=== PATIENT | male | born 1985 | race Caucasian/White ===

== ENCOUNTER 2016-06-20 10:16 | Emergency (ER) | payer OTHER ==
--- NOTE | 2016-06-20 10:21 | EDPHY ---
Medical Decision Making ED Course/Re-evaluation: CHIEF COMPLAINT: Dog bites. 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 The pain is 8/10 and described as a burning sensation. He denies other complaints at this time. He is unsure when his last tetanus was. REVIEW OF SYSTEMS: A 10 point review of systems was performed and is negative with the exception of the elements mentioned in the history of present illness. PHYSICAL EXAM: HR, BP, O2 Sat, RR. Temp noted General Appearance: Alert, well hydrated, appropriate, and non-toxic appearing. Head: Atraumatic without scalp tenderness or obvious injury Eyes: Pupils equal, round, reactive to light and accommodation, EOMI, no trauma , no injection. Ears: Clear bilaterally, no perforation, normal landmarks Nose: Atraumatic, no rhinorrhea, clear. Throat: There is no erythema or exudates, no lesions, normal tonsils, mucus membranes moist. Neck: Supple, 2+ carotid upstroke, nontender, no lymphadenopathy. Respiratory: No retractions, no distress, no wheezes, and no accessory muscle use. Lungs are clear to auscultation bilaterally. Cardiovascular: Regular rate and rhythm, no murmurs, rubs, or gallops. Bilateral carotid, radial, dorsalis pedis, and posterior tibial pulses intact. Good capillary refill all extremities. Gastrointestinal: Abdomen is soft, nontender, non-distended, no masses, no rebound, no guarding, no peritoneal signs. Musculoskeletal: Normal active ROM of all extremities. Superficial lacerations to both hands. Range of motion intact in all fingers. Sensory intact. Abrasion to right garcia. Neurological: Alert, appropriate, and interactive. The patient has normal DTRs and non-focal cranial nerves, motor, sensory, and cerebellar exam. Skin: No rashes, good turgor, no nodules on palpation. Past medical history: Denies. Past surgical history: Denies. Family history: N/A. 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 [employer]ISION [employer]KIN-year-old male presents via EMS with dog bites to both hands after trying to break up a dog fight. He has some superficial lacerations and abrasions and one of his fingernails is cracked. None of his injuries are repairable. We will clean and dress his wounds and give him a tetanus booster. He has full range of motion in all of his fingers and is intact neurologically. He will be given a referral to orthopedics for follow up if he needs and a prescription for Vicodin. Departure - Departure Disposition: Home, Routine, Self-Care Clinical Impression: Abrasion Dog bite Qualifiers: Encounter type: initial encounter Qualified Code(s): W54.0XXA - Bitten by dog, initial encounter Condition: Good Instructions: Animal Bite (ED), Abrasion (ED) Additional Instructions: Wash your hands frequently with soapy water. Take the Augmentin as prescribed. Call Dr. Andujar, hand surgeon, on Wednesday to set up a follow up appointment. Return to the emergency department if you experience any serious worsening of condition. Referrals: Roger Andujar MD [Medical Doctor] - As per Instructions Report Scribed for: Lucius Cordon Report Scribed by: Howie Herrera
[2016-06-20] MEDS ORDERED: AMOXICILLIN/CLAVULANATE POT 875/125 MG TAB PO ONE (10:22)
[2016-06-20 10:30] VITALS: O2SAT 95
[2016-06-20] MEDS ORDERED: TDAP ADULT 0.5 ML INJ (BOOSTRIX) IM ONE (10:36)
[2016-06-20 11:34] VITALS: BP 111/70; PULSE 76; RESP 15; TEMP 98.8
== END 2016-06-20 11:35 | disposition home or self-care (01) ==
DX: S60.511A Abrasion of right hand, initial encounter (principal); S60.512A Abrasion of left hand, initial encounter; Z23 Encounter for immunization; W54.0XXA Bitten by dog, initial encounter